=== PATIENT | female | born 1965 | race Caucasian/White ===

== ENCOUNTER → 2016-04-06 | Outpatient (CLI) | payer MEDICARE | END | disposition home or self-care (01) | LOC: PCVCCLINIC 12:30 | PROVIDERS: ATTEND Internal Medicine Cardiovascular Disease | DX: I10 Essential (primary) hypertension (principal); E78.00 Pure hypercholesterolemia, unspecified; I25.10 Atherosclerotic heart disease of native coronary artery without angina pectoris; I73.9 Peripheral vascular disease, unspecified; I77.9 Disorder of arteries and arterioles, unspecified; I71.4 Abdominal aortic aneurysm, without rupture | CPT/HCPCS: 80061; 93005; G0463 ==

== ENCOUNTER → 2016-10-14 | Outpatient (CLI) | payer MEDICARE ==
--- NOTE | 2016-10-14 11:22 | PCVCIMAG ---
EXAM: BILATERAL CAROTID DUPLEX INDICATION: Carotid Occlusive Disease. FINDINGS: Doppler Measurements (centimeters per second): RIGHT: Peak CCA-82, Peak ECA-130, Diastolic ICA-28, Peak ICA-99, ICA/CCA Ratio-1.2. LEFT: Peak CCA-103, Peak ECA-107, Diastolic ICA-38, Peak ICA-103, ICA/CCA Ratio-1.0. RIGHT CAROTID: The carotid bulb has moderate plaque. The proximal internal carotid artery shows <40% stenosis. The common carotid artery shows no significant stenosis. The external carotid artery shows 40% stenosis. LEFT CAROTID: The carotid bulb has moderate plaque. The proximal internal carotid artery shows <40% stenosis. The common carotid artery shows no significant stenosis. The external carotid artery shows no significant stenosis. Antegrade flow in both vertebral arteries. IMPRESSION: <40% stenosis of the right internal carotid artery with moderate plaque. <40% stenosis of the left internal carotid artery with moderate plaque. LOC:[id number]
--- NOTE | 2016-10-14 11:26 | PCVCIMAG ---
EXAM: AORTOILIAC DUPLEX INDICATION: Peripheral arterial disease FINDINGS: AORTA: Suprarenal aorta measures maximum diameter of 2.6 cm. There is not a fusiform infrarenal aortic aneurysm. The infrarenal aorta measures maximum diameter of 2.4 cm. No aortic stenosis. RIGHT COMMON ILIAC ARTERY: Maximum diameter is 1.5 cm. No significant stenosis. RIGHT EXTERNAL ILIAC ARTERY: Mild stenosis. LEFT COMMON ILIAC ARTERY: Maximum diameter is 1.6 cm. No significant stenosis. LEFT EXTERNAL ILIAC ARTERY: No significant stenosis. IMPRESSION: No abdominal aortic aneurysm. No high-grade aortoiliac stenosis seen. LOC:[id number]
--- NOTE | 2016-10-14 11:30 | PCVCIMAG ---
EXAM: BILATERAL LOWER EXTREMITY ARTERIAL DUPLEX INDICATION: Peripheral Arterial Disease. Leg pain. FINDINGS: Right Leg: Satisfactory arterial waveforms in the common femoral and profunda femoral artery. Chronic occlusion throughout the [place] superficial femoral artery. Postsurgical changes of femoral to above-knee popliteal artery bypass graft with the graft remaining patent. The popliteal artery is patent. The anterior tibial, peroneal, and posterior tibial arteries are patent. Left Leg: Satisfactory arterial waveforms throughout the common/profunda/superficial femoral, popliteal, anterior tibial, peroneal, and posterior tibial arteries. No flow limiting stenosis seen. IMPRESSION: Previous right femoral-popliteal artery bypass graft maintaining satisfactory patency. Unchanged occlusion throughout the [place] right superficial femoral artery. No flow limiting stenosis in the left lower extremity. LOC:[id number]
== END | disposition home or self-care (01) ==
LOC: PCVCIMAG 09:09
PROVIDERS: ATTEND Internal Medicine Cardiovascular Disease
DX: I70.201 Unspecified atherosclerosis of native arteries of extremities, right leg (principal); I65.23 Occlusion and stenosis of bilateral carotid arteries; I25.10 Atherosclerotic heart disease of native coronary artery without angina pectoris; E78.5 Hyperlipidemia, unspecified; I10 Essential (primary) hypertension; I71.4 Abdominal aortic aneurysm, without rupture; I77.1 Stricture of artery; E11.9 Type 2 diabetes mellitus without complications; Z95.1 Presence of aortocoronary bypass graft; Z79.82 Long term (current) use of aspirin; Z79.4 Long term (current) use of insulin; Z98.51 Tubal ligation status; Z87.891 Personal history of nicotine dependence; Z88.2 Allergy status to sulfonamides; Z88.5 Allergy status to narcotic agent
CPT/HCPCS: 80061; 93005; 93880; 93925; 93978; G0463

== ENCOUNTER → 2017-01-08 | Outpatient (CLI) | payer MEDICARE ==
[~2017-01-08] MED LIST: REGADENOSON 0.4 MG/5 ML DISP.SYRIN. IV ONE
--- NOTE | 2017-01-08 16:20 | PCVCIMAG ---
APPROVED REPORT Exam: Nuclear Stress Test Indication: Chest Pain Patient Location: Out-Patient Stress Nurse: Casie Urrutia RN, MARK Urban Tech:Jose Peoples NMTCB Ht: 5 ft 2 in Wt: 222 lbs BSA: 2.00 m2 HR: 77 bpm BP: 141/72 mmHg BMI: 40.5 Rhythm: NSR Medical History Medical History: Hyperlipidemia, HTN, PVD, CVD, CAD Medications: ASA, Losartan, Crestor, Metoprolol, NTG Allergies: Sulfa Codeine, Gabapentin Pretest Chest Pain Characteristics: No chest pain Exercise History: Physically active Meds Held (24 hrs): Metoprolol NM EXAM: Myocardial Perfusion REST/STRESS Imaging Protocol: Rest Tc-99m/Stress Tc-99m 1 day Resting Data Rest SPECT myocardial perfusion imaging was performed in supine position 45 minutes following the intravenous injection of 17.6 mCi of Tc-99m Sestamibi. Time of rest injection: 1200 Date: 01/08/2017 Pharmacologic Stress Pharmacologic stress test was performed by injecting Regadenoson 0.4 mg IV push followed by the intravenous injection of 48 mCi of Tc-99m Sestamibi. Time of stress injection: 1315 Date: 01/08/2017 The images were gated to evaluate regional wall motion and calculate left ventricular ejection fraction. Study Quality Study: Good Study Data Post stress, the left ventricular ejection was 50%.. SSS: 16 SRS: 10 SDS: 6 TID = 0.84. 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 Wall Motion There is a medium area of akinesis in the basal and mid segment of the inferolateral wall which is seen on the stress images as well as the resting images. 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 Post stress, the left ventricular ejection was 50%.. No change since prior study dated October 2015. Interpreted by: Sree Cates MD Electronically Approved: 01/08/2017 15:10:01 Stress Test Details Stress Test: Pharmacologic stress was paired with low level exercise. Reason for pharmacologic stress test: physical limitation. HR Resting HR: 77 bpmMax Heart Rate (APMHR): 168 bpm Max HR Achieved: 110 bpmTarget HR (85% APMHR): 142 bpm % of APMHR: 65 Recovery HR: 86 bpm BP Resting BP: 141/72 mmHg Max BP: 150/76 mmHg ECG Resting ECG: Sinus Rhythm Stress ECG: Sinus Tachycardia Arrhythmia: PVCs Recovery ECG: Sinus Rhythm Clinical Reason for Termination: Completed protocol Stress Symptoms: Chest Pain Exercise duration: 4 min sec Exercise capacity: 1.6 METs Nurse Comments Resolved in recovery Stress ECG Conclusion ECG: Non-ischemic <Conclusion> ECG: Non-ischemic
== END | disposition home or self-care (01) ==
LOC: PCVCIMAG 11:43
PROVIDERS: ATTEND Internal Medicine Cardiovascular Disease
DX: I25.10 Atherosclerotic heart disease of native coronary artery without angina pectoris (principal); E78.5 Hyperlipidemia, unspecified; I10 Essential (primary) hypertension; I73.9 Peripheral vascular disease, unspecified; R00.0 Tachycardia, unspecified; I49.3 Ventricular premature depolarization; Z87.891 Personal history of nicotine dependence
CPT/HCPCS: 78452; 93017; A9500; J2785

== ENCOUNTER → 2017-06-30 | Outpatient (CLI) | payer MEDICARE | END | disposition home or self-care (01) | LOC: PCVCCLINIC 14:49 | DX: I25.810 Atherosclerosis of coronary artery bypass graft(s) without angina pectoris (principal); I73.9 Peripheral vascular disease, unspecified; I77.9 Disorder of arteries and arterioles, unspecified; E11.9 Type 2 diabetes mellitus without complications; I71.4 Abdominal aortic aneurysm, without rupture; E78.00 Pure hypercholesterolemia, unspecified; I10 Essential (primary) hypertension; R94.31 Abnormal electrocardiogram [ECG] [EKG]; Z79.4 Long term (current) use of insulin; Z95.1 Presence of aortocoronary bypass graft; Z95.828 Presence of other vascular implants and grafts; Z87.891 Personal history of nicotine dependence; Z79.82 Long term (current) use of aspirin; Z79.899 Other long term (current) drug therapy; Z79.84 Long term (current) use of oral hypoglycemic drugs | CPT/HCPCS: 36415; 80061; 93005; G0463 ==

== ENCOUNTER → 2017-12-27 | Outpatient (CLI) | payer MEDICARE ==
--- NOTE | 2017-12-27 15:36 | PCVCIMAG ---
EXAM: BILATERAL LOWER EXTREMITY ARTERIAL DUPLEX INDICATION: Peripheral Arterial Disease. Leg pain. FINDINGS: Right Leg: Common femoral and profunda femoral arteries are patent. Occlusion throughout the [place] superficial femoral artery. Postsurgical changes of femoral-popliteal artery bypass graft remain patent with good flow throughout the graft. Mid and distal popliteal artery is patent. The anterior tibial, peroneal, and posterior tibial arteries are patent. Left Leg: Satisfactory arterial waveforms throughout the common/profunda/superficial femoral, popliteal, anterior tibial, peroneal, and posterior tibial arteries. No flow limiting stenosis seen. IMPRESSION: Right femoral-popliteal artery bypass graft maintaining good patency. No flow limiting stenosis in the left lower extremity. LOC:[id number]
== END | disposition home or self-care (01) ==
LOC: PCVCIMAG 13:45
PROVIDERS: ATTEND Internal Medicine Cardiovascular Disease
DX: I25.10 Atherosclerotic heart disease of native coronary artery without angina pectoris (principal); E11.9 Type 2 diabetes mellitus without complications; E78.00 Pure hypercholesterolemia, unspecified; I73.9 Peripheral vascular disease, unspecified; I71.4 Abdominal aortic aneurysm, without rupture; E78.1 Pure hyperglyceridemia; R07.89 Other chest pain; Z79.4 Long term (current) use of insulin; Z95.828 Presence of other vascular implants and grafts; Z87.891 Personal history of nicotine dependence; Z79.82 Long term (current) use of aspirin; Z79.84 Long term (current) use of oral hypoglycemic drugs; Z88.8 Allergy status to other drugs, medicaments and biological substances
CPT/HCPCS: 80061; 93005; 93925; G0463

== ENCOUNTER → 2018-03-31 | Outpatient (CLI) | payer MEDICARE | END | disposition home or self-care (01) | LOC: PCVCCLINIC 11:33 | PROVIDERS: ATTEND Internal Medicine Cardiovascular Disease | DX: I25.10 Atherosclerotic heart disease of native coronary artery without angina pectoris (principal); E78.1 Pure hyperglyceridemia; I77.9 Disorder of arteries and arterioles, unspecified; I10 Essential (primary) hypertension; R09.89 Other specified symptoms and signs involving the circulatory and respiratory systems; R94.31 Abnormal electrocardiogram [ECG] [EKG]; K21.9 Gastro-esophageal reflux disease without esophagitis; E11.51 Type 2 diabetes mellitus with diabetic peripheral angiopathy without gangrene; E78.00 Pure hypercholesterolemia, unspecified; Z79.4 Long term (current) use of insulin; Z95.1 Presence of aortocoronary bypass graft; Z79.82 Long term (current) use of aspirin; Z79.899 Other long term (current) drug therapy; Z87.891 Personal history of nicotine dependence; Z88.2 Allergy status to sulfonamides | CPT/HCPCS: 93005; G0463 ==

== ENCOUNTER → 2018-06-20 | Outpatient (CLI) | payer MEDICARE ==
--- NOTE | 2018-06-20 09:41 | PCVCIMAG ---
APPROVED REPORT Laterality: Bilateral Indications Stenosis Doppler Spectral Velocity Analysis PSV / EDVPSV / EDV ECA (R) 121 / 13 cm/sECA (L) 82 / 10 cm/s dICA (R) 76 / 26 cm/sdICA (L) 87 / 34 cm/s Michelle (R) 89 / 24 cm/smICA (L) 71 / 27 cm/s pICA (R) 79 / 27 cm/spICA (L) 68 / 16 cm/s Bulb (R) 65 / 16 cm/sBulb (L) 50 / 14 cm/s dCCA (R) 81 / 21 cm/sdCCA (L) 81 / 21 cm/s mCCA (R) 74 / 14 cm/smCCA (L) 95 / 21 cm/s Vert (R) 56 / 13 cm/sVert (L) 42 / 13 cm/s ICA/CCA 1.10ICA/CCA 1.07 Findings The right carotid bulb has mild plaque. The right proximal internal carotid artery shows <40% stenosis. The right common carotid artery shows no significant stenosis. The right external carotid artery shows no significant stenosis. The left carotid bulb has moderate plaque. The left proximal internal carotid artery shows <40% stenosis. The left common carotid artery shows no significant stenosis. The left external carotid artery shows no significant stenosis. Conclusion 1. Right internal carotid artery stenosis (<40%) 2. Left internal carotid artery stenosis (<40%) 3. Antegrade vertebral flow Similar to a study dated September 2016.
--- NOTE | 2018-06-20 16:57 | PCVCIMAG ---
EXAM: BILATERAL LOWER EXTREMITY ARTERIAL DUPLEX INDICATION: Peripheral Arterial Disease. Leg pain. FINDINGS: Right Leg: Common femoral and profunda femoral arteries are patent. Occlusion of the [place] superficial femoral artery. Postsurgical changes femoral to above-knee popliteal artery bypass graft show satisfactory patency throughout. Popliteal artery is patent. The anterior tibial, peroneal, and posterior tibial arteries are patent. Left Leg: Satisfactory arterial waveforms throughout the common/profunda/superficial femoral, popliteal, anterior tibial, peroneal, and posterior tibial arteries. No flow limiting stenosis seen. IMPRESSION: Chronic occlusion [place] right superficial femoral artery. Right femoral-proximal artery bypass graft maintaining satisfactory patency throughout. No flow limiting stenosis in the left lower extremity. LOC:[id number]
--- NOTE | 2018-06-21 13:53 | PCVCIMAG ---
APPROVED REPORT Study performed: 06/20/2018 10:19:54 Exam: Stress Echocardiogram Indication: CAD s/p CABG, Chest pain on exertion, dm, htn Patient Location: Echo lab Stress Nurse: Casie Urrutia RN Status: routine Ht: 5 ft 2 in HR: 81 bpm BP: 124/82 mmHg Rhythm: NSR Procedure The patient underwent an Exercise Stress Test using the Brian Protocol. Blood pressure, heart rate, and EKG were monitored. An Echocardiogram was performed by metallographic technician in four stages in quad fashion. At peak stress, four selected images were obtained and placed side by side with resting images for comparison. Stress Test Details Stress Test: Exercise stress testing was performed using a Brian protocol. HR Resting HR: 81 bpmMax Heart Rate (APMHR): 166 bpm Max HR Achieved: 150 bpmTarget HR (85% APMHR): 141 bpm % of APMHR: 90 Recovery HR: 85 bpm HR response to stress: Normal HR response to stress BP Resting BP: 124/82 mmHg Max BP: 174/80 mmHg Recovery BP: 148/86 mmHg BP response to stress: Normal blood pressure response to stress. ECG Resting ECG: Sinus Rhythm, nonspecific ST-T abnormalities Stress ECG: Sinus Rhythm, nonspecific ST-T abnormalities ST Change: Nondiagnostic resting ST abnormalities Arrhythmia: frequent PVCs Recovery ECG: Sinus Rhythm, nonspecific ST-T abnormalities Recovery ST Change: Nondiagnostic resting ST abnormalities Recovery Arrhythmia: PVCs Clinical Reason for Termination: Maximal effort Stress Symptoms: Chest pain Exercise duration: 4 min 14 sec Highest Stage Achieved: Stage 2: 2.5 mph at 12% grade. Exercise capacity: 7 METs Overall Exercise Capacity for Age: Poor Scale: Sedentary Angina Score: Non-Limiting Pre-Stress Echo The resting Echocardiogram showed normal left ventricular contractility with an estimated Ejection Fraction of about 40-45%. Fixed mid-inferior akinesis Post-Stress Echo The stress Echocardiogram showed normal left ventricular contractility with an estimated Ejection Fraction of about 45-50%. Fixed mid-inferior akinesis. Subtle area of inferolateral hypokinesis. Clinical ECG is non-diagnostic with baseline ST abnormality. Clinical evidence for ischemia with chest pain/angina with peak exertion that resolved with rest. Conclusion Clinical Response: Ischemic Exercise Capacity: Below Average Stress ECG Response: Equivocal Stress Echo Images: Equivocal The left ventricle is normal in size and wall thickness in both the rest and stress images. Close follow up in 3 months and imdur 30 mg added to medical regimine. No intervention at this point. Other Information Study Quality: Adequate <Conclusion> The left ventricle is normal in size and wall thickness in both the rest and stress images. Close follow up in 3 months and imdur 30 mg added to medical regimine. No intervention at this point.
== END | disposition home or self-care (01) ==
LOC: PCVCIMAG 09:16
PROVIDERS: ATTEND Internal Medicine Cardiovascular Disease
DX: I65.23 Occlusion and stenosis of bilateral carotid arteries (principal); I25.10 Atherosclerotic heart disease of native coronary artery without angina pectoris; I10 Essential (primary) hypertension; E78.1 Pure hyperglyceridemia; R07.89 Other chest pain; Z95.1 Presence of aortocoronary bypass graft
CPT/HCPCS: 93325; 93351; 93880; 93925